=== PATIENT | female | born 1990 | race Caucasian/White ===

== ENCOUNTER 2021-11-24 11:47 | Emergency (ER) | payer OTHER ==
[~2021-11-24] VITALS: Ht 154.9 cm; Wt 60.8 kg
--- NOTE | 2021-11-24 11:52 | NUR ---
PT AMBULATED TO BED 04.
[2021-11-24 11:57] VITALS: BP 145/97
--- NOTE | 2021-11-24 12:00 | NUR ---
PER [employer] PT TO BE TAKEN TO LOBBY.
--- NOTE | 2021-11-24 12:17 | NUR ---
30 Y/O FEMALE C/O CHEST PAIN 12/07 DECRIBES PRESSURE INTERMITTENT X1DAY. DENIES FEVER/CHILLS. DENIES N/V/D. DENIES PMH ALLERGIES: ASA, VICODIN, AND CODEINE
--- NOTE | 2021-11-24 12:23 | NUR ---
PT AMBULATED TO ER BED 3 WITH A STEADY GAIT.
--- NOTE | 2021-11-24 12:36 | NUR ---
DR. GOODEN BEDSIDE EVALUATING PT
[2021-11-24] MEDS ORDERED: ACET-8386 PO (12:44)
[2021-11-24 12:47] VITALS: BP 145/97
--- NOTE | 2021-11-24 12:48 | NUR ---
Patient discharged with v/s stable. Written and verbal after care instructions given and explained. Patient alert, oriented and verbalized understanding of instructions. Ambulatory with steady gait. All questions addressed prior to discharge. ID band removed. Patient advised to follow up with PMD. Rx of HYDROCONDE/ACETAMINOPHEN given. Patient educated on indication of medication including possible reaction and side effects. Opportunity to ask questions provided and answered.
== END 2021-11-24 12:48 | disposition home or self-care (01) ==
LOC: MED 11:47
DX: R07.89 Other chest pain (principal)
CPT/HCPCS: 99283